=== PATIENT | male | born 1990 | race Caucasian/White ===

== ENCOUNTER 2020-02-16 10:11 | Emergency (ER) | payer BC, SELFPAY ==
[2020-02-16] VITALS (7 sets, daily range): BP systolic 116–134; BP diastolic 70–89; PULSE 77–100; RESP 10–16; TEMP 36.6; O2SAT 92–99
--- NOTE | ~2020-02-16 | XR_ITS ---
EXAMINATION: XR chest 1V portable DATE: 02/16/2020 11:01 INDICATION: Drug overdose. TECHNIQUE: A single frontal view of the chest was obtained on 2 radiographs. COMPARISON: None. FINDINGS: The chest demonstrates clear lungs without pneumonia, pleural effusion, or pneumothorax. Th e heart size is normal. IMPRESSION: 1. No acute cardiopulmonary disease. Reviewed, dictated and finalized at location A.
[2020-02-16] MEDS: NALOXONE HCL 0.4 MG/ML VIAL IV PUSH (10:31)
[2020-02-16] MEDS: SODIUM CHLORIDE 0.9% IV 1,000 ML 999 ML IV CONT (10:37)
[2020-02-16] MEDS: NALOXONE HCL 0.4 MG/ML VIAL (10:48)
[2020-02-16 10:58] LABS: Basophils Percent Auto 0.3 % (0.2-1.2); Eosinophils Absolute Auto 0.1 K/mm3 (0-0.3); Eosinophils Percent Auto 1.5 % (0-4.4); Hematocrit 39.9 % (42.0-52.0); Hemoglobin 13.9 g/dL (14.0-18.0); Immature Granulocyte Absolute 0.03 K/mm3 (0.00-0.031); Immature Granulocyte Percent A 0.3 % (0-0.5); Lymphocytes Absolute Auto 1.08 K/mm3 (0.9-3.2); Lymphocytes Percent Auto 12.6 % (18.3-44.2); Mean Corpuscular HGB Conc 34.8 g/dl (32-36); Mean Corpuscular Hemoglobin 30.2 pg (26-34); Mean Corpuscular Volume 86.6 fl (80-100); Mean Platelet Volume 9.9 fl (7.4-10.4); Monocytes Absolute Auto 0.8 K/mm3 (0.1-0.6); Neutrophils Absolute Auto 6.5 K/mm3 (1.3-6.7); Neutrophils Percent Auto 76.3 % (45.5-73.1); Platelet Count Result 295 k/mm3 (150-375); Red Blood Count 4.61 M/mm3 (4.6-6.20); Red Cell Distribution Width 12.6 % (11.5-14.5); White Blood Count 8.6 K/mm3 (4.5-10.0)
[2020-02-16 11:08] LABS: Alanine Aminotransferase 19 U/L (4-50); Albumin Level 4.3 g/dL (3.5-5.1); Alkaline Phosphatase 79 U/L (38-126); Anion Gap 9 mmol/L (8-16); Aspartate Amino Transferase 47 U/L (17-59); Bilirubin,Total 0.9 mg/dL (0.2-1.3); Blood Urea Nitrogen 9 mg/dL (9-20); Calcium 10.1 mg/dL (8.4-10.2); Carbon Dioxide 28 mmol/L (22-30); Chloride 100 mmol/L (98-107); Creatine Kinase 648 U/L (55-170); Estimated Glomerular Filt Rate > 60; Glucose 110 mg/dL (75-110); Potassium 3.5 mmol/L (3.4-5.0); Sodium 137 mmol/L (137-145)
[2020-02-16 11:09] LABS: Alveolar/Arterial O2 Gradient 34.9 mmHg; Base Excess ABG 1.2 mEq/l (+/-2.0); Carboxyhemoglobin 1.4 % THb (0-2.0); Fractional Inspired Oxygen 21 %; HCO3 ABG 26.2 mEq/l (22.0-26.0); Methemoglobin ABG 0.5 %THb (0-1.5); Modified Allen's Test Pass; Oxygen Content ABG 18.5 %vol (16.0-22.0); Oxygen Saturation ABG 92.5 % (95.0-100.0); Oxyhemoglobin 90.1 % THb (90.0-100.0); PCO2 ABG 42.6 mmHg (35.0-45.0); PO2 ABG 63.8 mmHg (80.0-100.0); PO2 FiO2 Ratio Arterial Blood 3.04 %; Total Hemoglobin 14.6 g/dL (12.0-18.0); pH ABG 7.406 (7.350-7.450)
[2020-02-16 11:10] LABS: Device ROOM AIR; Site Drawn LEFT RADIAL
[2020-02-16] MEDS: NALOXONE HCL INJ 2 MG/2 ML AMP IV PUSH (11:50)
[2020-02-16 12:58] LABS: Add Urine Microscopic? YES; Appearance Urine Clear (Clear); Bacteria Urine Trace /hpf; Bilirubin Urine Negative (Negative); Blood Urine Negative (Negative); Color Urine Yellow (Yellow); Glucose Urine UA Negative (Negative); Ketones Urine Trace mg/dL (Negative); Leukocyte Esterase Ur Negative LEU/UL (Negative); Mucus Urine Heavy /lpf; Nitrate Urine Negative (Negative); Protein Urine 2+ mg/dL (Negative); RBC Urine 0-2 /hpf (0-2); Specific Grav Ur 1.021 (1.001-1.035); WBC Urine 0-3 /hpf
[2020-02-16 13:01] LABS: Barbiturate Screen Urine Negative (Negative); Benzodiazepines Screen Urine Negative (Negative)
[2020-02-16 13:06] LABS: Cannabinoid Screen Urine Positive (Negative); Cocaine Screen Urine Negative (Negative); Methadone Screen Urine Negative (Negative); Opiate Screen Urine Negative (Negative); Phencyclidine Screen Urine Negative (Negative)
--- NOTE | 2020-02-16 13:50 | ED.GENADULT ---
HPI - General Adult General Chief complaint: Overdose Stated complaint: OD Time Seen by Provider: 02/16/20 10:24 Source: patient and EMS Mode of arrival: EMS Limitations: no limitations History of Present Illness HPI narrative: Patient is a 30-year-old male who presents per EMS for concern of overdose patient was given Narcan in the field by EMS and did have improvement in his mentation patient on arrival is alert and oriented x3 does appear to be tired and does not off and on. Patient is denying any pain recent illness or other complaints and admits to snorting fentanyl this morning Related Data Allergies Allergy/AdvReac Type Severity Reaction Status Date / Time No Known Allergies Allergy Verified 01/12/17 07:21 Review of Systems Review of Systems: All systems reviewed & are unremarkable except as noted in HPI and below PMFSH Social History Social History (Updated 02/16/20 @ 13:51 by James Ackerman PA-C) Smoking status: Current every day smoker Substance use type: heroin and amphetamines Living arrangements: alone Exam Narrative: Exam Narrative: GENERAL: Well-appearing, well-nourished, and in no acute distress. HEAD: Normocephalic, atraumatic. EYES: PERRLA and EOMI. ENT: Nares clear, no rhinorrhea or epistaxis. Mucous membranes moist. CHEST: Clear to auscultation. No respiratory distress. No wheezes rales or rhonchi HEART: Regular rate and rhythm. No murmur heard. Normal peripheral pulses. ABDOMEN: Soft, nontender, nondistended EXTREMITIES: Normal range of motion. No edema. SKIN: Warm, dry, no rash. NEURO: No focal deficits. Alert and oriented x3. Cranial nerves II through XII grossly intact. Normal speech and gait PSYCH: Normal mood and affect. Course Course Emergency Course: Patient was given Narcan in the emergency department had minimal change from when he initially presented patient sleeps off and on however is easily arousable patient will be discharged. . Patient otherwise resting in the room in no distress at this time has been observed in the emergency department and felt appropriate for outpatient reevaluation Vital Signs Vital signs: Vital Signs Temperature 98 F 02/16/20 10:15 Pulse Rate 98 02/16/20 10:15 Respiratory Rate 12 02/16/20 10:15 Blood Pressure 116/77 02/16/20 10:15 Pulse Oximetry 92 02/16/20 10:15 Temperature 98 F 02/16/20 10:15 Pulse Rate 98 02/16/20 10:15 Respiratory Rate 12 02/16/20 10:15 Blood Pressure 116/77 02/16/20 10:15 Pulse Oximetry 92 02/16/20 10:15 Medical Decision Making MDM Narrative Medical decision making narrative: Patient with overdose which was unintentional in the room in no distress long-term history of drug abuse will be discharged at this time after being observed patient resting but easily arousable able to ambulate felt appropriate for outpatient reevaluation Vital Signs Vital Signs: Vital Signs Temperature 98 F 02/16/20 10:15 Pulse Rate 98 02/16/20 10:15 Respiratory Rate 12 02/16/20 10:15 Blood Pressure 116/77 02/16/20 10:15 Pulse Oximetry 92 02/16/20 10:15 Temperature 98 F 02/16/20 10:15 Pulse Rate 98 02/16/20 10:15 Respiratory Rate 12 02/16/20 10:15 Blood Pressure 116/77 02/16/20 10:15 Pulse Oximetry 92 02/16/20 10:15 Lab Data Result diagrams: 02/16/20 10:45 02/16/20 10:45 Labs: Lab Results 02/16/20 02/16/20 02/16/20 Range/Units 10:45 10:45 10:45 WBC 8.6 (4.5-10.0) K/mm3 RBC 4.61 (4.6-6.20) M/mm3 Hgb 13.9 L (14.0-18.0) g/dL Hct 39.9 L (42.0-52.0) % MCV 86.6 (80-100) fl MCH 30.2 (26-34) pg MCHC 34.8 (32-36) g/dl RDW 12.6 (11.5-14.5) % Plt Count 295 (150-375) k/mm3 MPV 9.9 (7.4-10.4) fl Immature Gran % (Auto) 0.3 (0-0.5) % Neut % (Auto) 76.3 H (45.5-73.1) % Lymph % (Auto) 12.6 L (18.3-44.2) % [place] % (Auto) 9.0 H (2.6-8.5) % Eos % (Auto) 1.5 (0-4.4) %
== END 2020-02-16 14:45 | disposition home or self-care (01) ==
PROVIDERS: Emergency Medicine Emergency Medical Services; Emergency Provider Emergency Medicine
DX: T40.411A Poisoning by fentanyl or fentanyl analogs, accidental (unintentional), initial encounter (principal); F17.200 Nicotine dependence, unspecified, uncomplicated
CPT/HCPCS: 36415; 36600; 71045; 80053; 80307; 81001; 82375; 82550; 82805; 83050; 85025; 96361; 96374; 96376; 99284; J2310; J7030

== ENCOUNTER 2022-05-16 20:26 | Emergency (ER) | payer BC, SELFPAY ==
--- NOTE | ~2022-05-16 | CT_ITS ---
EXAMINATION: CT cervical spine wo con DATE: 05/16/2022 22:27 INDICATION: Found down. Unresponsive. TECHNIQUE: Computed tomography (CT) of the cervical spine was performed without intravenous contrast. Automated exposure control and iterative reconstruction technique were employed. Exam dose: 457.97 mGy-cm total exam DLP. COMPARISON: None FINDINGS: C1 and C2 are normally aligned and the odontoid process is intact. No fracture or dislocati on or locked facet or prevertebral soft tissue swelling. Cervical interspaces are preserved. No preve rtebral soft tissue swelling.. IMPRESSION: Negative Reviewed, dictated and finalized at Location A. Reviewed, dictated and finalized at location A. ICAL LABORATORY SCIENCE PROFESSOR IMPRESSION: Negative
--- NOTE | ~2022-05-16 | CT_ITS ---
EXAMINATION: CT brain wo con DATE: 05/16/2022 22:27 INDICATION: Found down. Unresponsive. TECHNIQUE: Computed tomography (CT) of the head was performed without intravenous contrast. The mA wa s adjusted according to patient size. Iterative reconstruction technique was employed. Exam dose: 68 1.00 mGy-cm total exam DLP. COMPARISON: None FINDINGS: No intracranial mass lesion or hemorrhage or cerebrovascular accident is detected. No midli ne shift or mass t effect. Normal ventricular size. No subdural or epidural hematoma. There is patchy soft tissue thickening the ethmoid air cells. The paranasal sinuses and mastoid air c ells included in this examination are otherwise unremarkable. No fracture or bone destruction of the cranial vault. IMPRESSION: No significant intracranial abnormality Reviewed, dictated and finalized at Location [facility]. Reviewed, dictated and finalized at location A. EDUCATIONAL AIDE
--- NOTE | ~2022-05-16 | XR_ITS ---
XR chest 1V portable DATE: 05/16/2022 21:07 INDICATION: Unresponsiveness TECHNIQUE: Portable supine AP chest on 06/02/2022 at 2102 hours COMPARISON: None FINDINGS: Mild patchy infiltrates or atelectasis are scattered in the lungs, greater in the lower elvira g zones. Heart size is likely within normal range considering magnification associated with AP projection. No pleural effusion or pulmonary vascular congestion or pneumothorax. IMPRESSION: Bilateral mild patchy infiltrate or atelectasis, greater in the lower lung zones Reviewed, dictated and finalized at location A. LLATE CONFEREE IMPRESSION: Bilateral mild patchy infiltrate or atelectasis, greater in the low er lung zones
[2022-05-16 20:22] VITALS: BP 132/82; PULSE 71; RESP 11; TEMP 36.9; O2SAT 100
--- NOTE | 2022-05-16 20:37 | ECG_ITS ---
Measurements Intervals [place] Rate: 68 P: 14 CA: 134 QRS: 64 QRSD: 95 T: 53 QT: 387 QTc: 414 Interpretive Statements SINUS RHYTHM BASELINE ARTIFACT- V1 NORMAL ECG NO PREVIOUS ECG AVAILABLE FOR COMPARISON Electronically Signed On 05-17-2022 8:10:04 MEDIA TRAFFIC MANAGER by Gigi Yi D.O.
[2022-05-16 21:06] LABS: Basophils Percent Auto 0.4 % (0.2-1.2); Eosinophils Absolute Auto 0.2 K/mm3 (0-0.3); Eosinophils Percent Auto 2.6 % (0-4.4); Immature Granulocyte Absolute 0.03 K/mm3 (0.00-0.031); Immature Granulocyte Percent A 0.4 % (0-0.5); Lymphocytes Absolute Auto 1.61 K/mm3 (0.9-3.2); Lymphocytes Percent Auto 20.8 % (18.3-44.2); Mean Corpuscular HGB Conc 31.6 g/dl (32-36); Mean Corpuscular Hemoglobin 27.5 pg (26-34); Mean Platelet Volume 8.5 fl (7.4-10.4); Monocytes Absolute Auto 0.6 K/mm3 (0.1-0.6); Monocytes Percent Auto 7.5 % (2.6-8.5); Neutrophils Absolute Auto 5.3 K/mm3 (1.3-6.7); Neutrophils Percent Auto 68.3 % (45.5-73.1); Platelet Count Result 374 k/mm3 (150-375); Red Blood Count 4.37 M/mm3 (4.6-6.20); Red Cell Distribution Width 13.4 % (11.5-14.5); White Blood Count 7.7 K/mm3 (4.5-10.0)
[2022-05-16 21:11] LABS: Glucose Point of Care 114 mg/dl (65-105)
[2022-05-16 21:12] LABS: Alveolar/Arterial O2 Gradient 1.1 mmHg; Base Excess ABG 1.4 mEq/l (+/-2.0); Carboxyhemoglobin 1.2 % THb (0-2.0); Device ROOM AIR; Fractional Inspired Oxygen 21 %; HCO3 ABG 27.8 mEq/l (22.0-26.0); Methemoglobin ABG 0.2 %THb (0-1.5); Modified Allen's Test Pass; Oxygen Content ABG 17.1 %vol (16.0-22.0); Oxygen Saturation ABG 96.1 % (95.0-100.0); Oxyhemoglobin 94.5 % THb (90.0-100.0); PCO2 ABG 51.4 mmHg (35.0-45.0); PO2 ABG 87.1 mmHg (80.0-100.0); PO2 FiO2 Ratio Arterial Blood 4.15 %; Reduced Hemoglobin 4.1 %THb (0-5.0); Site Drawn RIGHT RADIAL; Total Hemoglobin 12.8 g/dL (12.0-18.0); pH ABG 7.351 (7.350-7.450)
[2022-05-16 21:20] LABS: INR 1.1; Prothrombin Time 13.9 Seconds (11.1-14.7)
[2022-05-16 21:21] LABS: Lactic Acid Reflex 1.1 mmol/L (0.7-2.0)
[2022-05-16 21:22] LABS: Alanine Aminotransferase 44 U/L (6-50); Alkaline Phosphatase 78 U/L (38-126); Anion Gap 5 mmol/L (8-16); Aspartate Amino Transferase 50 U/L (17-59); Bilirubin,Total 0.4 mg/dL (0.2-1.3); Blood Urea Nitrogen 15 mg/dL (9-20); Calcium 8.7 mg/dL (8.4-10.2); Carbon Dioxide 27 mmol/L (22-30); Chloride 101 mmol/L (98-107); Creatine Kinase 141 U/L (55-170); Estimated CRCL calculation 155 ml/min; Estimated Glomerular Filt Rate > 60; Glucose 116 mg/dL (65-110); Magnesium 2.1 mg/dL (1.6-2.3); Potassium 4.6 mmol/L (3.4-5.0); Sodium 133 mmol/L (137-145)
[2022-05-16 21:23] LABS: Ethanol < 10 mg/dL (<10)
[2022-05-16 21:26] VITALS: BP 125/80; PULSE 72; RESP 12; O2SAT 98
[2022-05-16 21:33] LABS: Appearance Urine Clear (Clear); Bilirubin Urine 1+ (Negative); Blood Urine Trace-intact (Negative); Color Urine Yellow (Yellow); Glucose Urine UA Negative (Negative); Ketones Urine Negative (Negative); Leukocyte Esterase Ur Negative LEU/UL (Negative); Nitrate Urine Negative (Negative); Protein Urine Negative (Negative); Specific Grav Ur >= 1.030 (1.001-1.035)
[2022-05-16 21:39] LABS: Barbiturate Screen Urine Negative (Negative); Benzodiazepines Screen Urine Negative (Negative)
[2022-05-16 21:43] LABS: Cannabinoid Screen Urine Positive (Negative); Cocaine Screen Urine Negative (Negative)
[2022-05-16 21:48] LABS: Calcium Oxalate Crystals Urine Present /hpf; Mucus Urine Rare /lpf; Squamous Epithelial Cell Urine Rare /hpf (Few); WBC Urine 0-3 /hpf
[2022-05-16 21:51] LABS: Add Urine Microscopic? YES
[2022-05-16 21:54] LABS: Methadone Screen Urine Negative (Negative); Opiate Screen Urine Negative (Negative); Phencyclidine Screen Urine Negative (Negative)
[2022-05-16 22:01] LABS: Influenza A QL RT-PCR Negative (Negative); Influenza B QL RT-PCR Negative (Negative); SARS-CoV-2 RNA PCR Negative
[2022-05-16 22:02] VITALS: BP 134/82; PULSE 65; RESP 10; O2SAT 98
[2022-05-16] MEDS: SODIUM CHLORIDE 0.9% IV 1,000 ML 999 ML IV CONT (22:02)
[2022-05-16 22:11] LABS: Amphetamine Screen Urine Positive (Negative)
[2022-05-16] MEDS: NALOXONE HCL 0.4 MG/ML VIAL IV PUSH (22:35)
--- NOTE | 2022-05-16 22:44 | PC.NURSE ---
patient received narcan. he woke up and asked if the police were here. Dr Leung spoke with patient. he requested to leave. gave me a number for family member , spoke with family, states that she will try to contact someone who can come pick him up. ER phone number given to return call
--- NOTE | 2022-05-16 22:52 | ED.AMS ---
HPI - Altered Mental Status General Chief Complaint: Altered Mental Status Stated Complaint: AMS Source: EMS and RN notes reviewed Mode of arrival: EMS Limitations: altered mental status History of Present Illness HPI narrative: This is a 32 year old male who presents for evaluation of altered mental status. He presents with EMS , and they report a bystander found patient in a ditch. He is unable to give any history at this time. Review of Systems Review of Systems: ROS unobtainable: Yes unobtainable due to mental status PMFSH Past Medical History Medical History (Updated 05/17/22 @ 07:40 by Sumi Leung MD) Medical history unknown Surgical History Surgical History (Updated 05/17/22 @ 02:25 by Sumi Leung MD) Surgical history unknown Social History Social History (Updated 05/17/22 @ 02:25 by Sumi Leung MD) Substance use type: marijuana and methamphetamine Exam Const: Nutritional Appearance: well nourished Other: patient is sleeping HENMT: Head: normal to inspection Teeth and gingiva: dentition normal Eyes: Other: pinpoint pupils Chest: Chest palpation & inspection: normal inspection of the chest Resp: Effort & Inspection: normal respiratory effort Auscultation: clear to auscultation bilaterally Cardio: Rate: regular rate Rhythm: regular rhythm Heart sounds: no murmurs GI: GI Palp: Yes Soft to palpation, No Tenderness to palpation present (GI), No Guarding due to palpation present (GI) and No Rigid due to palpation Auscultation: normal bowel sounds Skin: Other: patient multiple ulceration and wounds to arms from previous drug use Neuro: General: moves all extremities and CN's II-XI intact bilaterally Extrem: General: no pedal edema Psych: Attitude: cooperative Course Reevaluation(s) Reevaluation #1: Patient was given narcan and he woke up . He was able to be oriented x 4. He asked for us to call his mother She came to ER and she took patient home. Date: 05/16/22 Time: 23:30 Vital Signs Vital signs: Vital Signs Temperature 98.4 F 05/16/22 20:22 Pulse Rate 71 05/16/22 20:22 Respiratory Rate 11 L 05/16/22 20:22 Blood Pressure 132/82 05/16/22 20:22 Pulse Oximetry 100 01/13/23 20:22 Temperature 98.4 F 05/16/22 20:22 Pulse Rate 100 05/16/22 23:23 Respiratory Rate 17 05/16/22 23:23 Blood Pressure 111/64 05/16/22 23:23 Pulse Oximetry 98 05/16/22 23:23 MDM - Altered Mental Status Lab Data Attestation: I reviewed the patient's lab results. 05/16/22 21:00 05/16/22 21:00 Labs: Lab Results 05/16/22 05/16/22 05/16/22 Range/Units 21:00 21:00 21:00 WBC 7.7 (4.5-10.0) K/mm3 RBC 4.37 L (4.6-6.20) M/mm3 Hgb 12.0 L (14.0-18.0) g/dL Hct 38.0 L (42.0-52.0) % MCV 87.0 (80-100) fl MCH 27.5 (26-34) pg MCHC 31.6 L (32-36) g/dl RDW 13.4 (11.5-14.5) % Plt Count 374 (150-375) k/mm3 MPV 8.5 (7.4-10.4) fl Immature Gran % (Auto) 0.4 (0-0.5) % Neut % (Auto) 68.3 (45.5-73.1) % Lymph % (Auto) 20.8 (18.3-44.2) % [place] % (Auto) 7.5 (2.6-8.5) % Eos % (Auto) 2.6 (0-4.4) % Baso % (Auto) 0.4 (0.2-1.2) % Lymph # (Auto) 1.61 (0.9-3.2) K/mm3 [place] # (Auto) 0.6 (0.1-0.6) K/mm3 Eos # (Auto) 0.2 (0-0.3) K/mm3 Baso # (Auto) 0.0 (0.0-0.1) K/mm3 Abs Immat Gran (auto) 0.03 (0.00-0.031) K/mm3 Absolute Neuts (auto) 5.3 (1.3-6.7) K/mm3 Absolute Nucleated RBC 0.0 (0.0-0.012) K/mm3 Nucleated RBC % 0.0 (0.0-0.2) % PT 13.9 (11.1-14.7) Seconds INR 1.1 APTT 32.0 (22.3-36.8) SECONDS Methemoglobin (0-1.5) %THb Sodium 133 L (137-145) mmol/L Potassium 4.6 (3.4-5.0) mmol/L Chloride 101 (98-107) mmol/L Carbon Dioxide 27 (22-30) mmol/L Anion Gap 5 L (8-16) mmol/L BUN 15 (9-20) mg/dL Creatinine 0.60 L (0.7-1.3) mg/dL Estim Creat Clear Calc 155 ml/min Estimated
--- NOTE | 2022-05-16 22:52 | PC.NURSE ---
spoke with patient's mom, she is coming from [place] to pick patient up
[2022-05-16 23:23] VITALS: BP 111/64; PULSE 100; RESP 17; O2SAT 98
== END 2022-05-16 23:35 | disposition left against medical advice (07) ==
PROVIDERS: Emergency Provider General Practice
DX: F19.10 Other psychoactive substance abuse, uncomplicated (principal); Z20.822 Contact with and (suspected) exposure to COVID-19
CPT/HCPCS: 36415; 36600; 70450; 71045; 72125; 80053; 80307; 81001; 82375; 82550; 82805; 82948; 83050; 83605; 83735; 85025; 85610; 85730; 87636; 93005; 96361; 96374; 99284; J2310; J7030

== ENCOUNTER 2022-11-18 14:21 | Emergency (ER) | payer BC, SELFPAY ==
[2022-11-18 14:24] VITALS: BP 140/86; PULSE 102; RESP 16; TEMP 36.8; O2SAT 97
--- NOTE | 2022-11-18 15:15 | PC.NURSE ---
went to assess pt in room, pt no longer in room. pt told triage desk im brianna check out . pt walked out of department.
== END 2022-11-18 15:15 | disposition left against medical advice (07) ==
DX: K08.89 Other specified disorders of teeth and supporting structures (principal)
CPT/HCPCS: 99199

== ENCOUNTER 2022-11-20 20:07 | Emergency (ER) | payer BC, SELFPAY ==
--- NOTE | 2022-11-20 20:16 | PC.NURSE ---
pt. consents to bp, hr, and spo2 vitals but refuses any other treatment at this time.
--- NOTE | 2022-11-20 20:17 | ED_ITS ---
HPI - General Adult General Chief complaint: Overdose Stated complaint: OVERDOSE Time Seen by Provider: 11/20/22 20:14 History of Present Illness HPI narrative: Patient 30-year-old gentleman presents emerged department with chief complaint of fentanyl overdose. Patient states he took some fentanyl became unresponsive was given Narcan by EMS patient reports he is currently awake alert not having any problems and wants to get out of here. Review of Systems Review of Systems: A 10 system review of systems was completed on the patient and is negative except for what is stated in the HPI. Nursing and ancillary documentation was reviewed. [facility] Past Medical History Medical History Medical history unknown Surgical History Surgical History Surgical history unknown Social History Social History Substance use type: marijuana and methamphetamine Exam Narrative: GENERAL: Well-appearing, well-nourished, and in no acute distress. HEAD: Normocephalic, atraumatic. EYES: PERRLA and EOMI. ENT: Nares clear, no rhinorrhea or epistaxis. Mucous membranes moist. NECK: Supple. CHEST: Clear to auscultation. No respiratory distress. HEART: Regular rate and rhythm. No murmur heard. Normal peripheral pulses. ABDOMEN: Soft, nontender, nondistended, normal active bowel sounds. EXTREMITIES: Normal range of motion. No edema. SKIN: Warm, dry, no rash. NEURO: No focal deficits. Alert and oriented x3. PSYCH: Normal mood and affect. Medical Decision Making [facility] Narrative Medical decision making narrative: Differential diagnosis opiate overdose. Polysubstance overdose Patient is denying any suicidal or homicidal ideation. Patient reports that he is ready to leave patient was explained that the patient should be observed for an hour in the emergency department to make sure that there is any residual effects of the fentanyl the patient states that he is ready to leave and feels fine and understands that there is a risk of Discharge Plan Discharge Clinical Impression: Accidental fentanyl overdose Patient Disposition: Left Against Medical Advice Condition: Stable Instructions: Narcotic Safety (ED), Narcotic Use Disorder (ED) Prescriptions: New naloxone [Narcan] 4 mg/actuation spray,non-aerosol 4 mg intranasal Q2M PRN (Reason: opioid overdose) Qty: 2 0RF Rx Instructions: spray 1 dose into ONE nostril; alternate nostrils w each dose until help arrives Follow-up/Referrals: UNKNOWN,DOCTOR [Primary Care Provider] -
[2022-11-20 20:29] VITALS: RESP 14; O2SAT 95
== END 2022-11-20 20:28 | disposition left against medical advice (07) ==
LOC: ANHED 20:21
PROVIDERS: Emergency Provider Emergency Medicine
DX: T40.411A Poisoning by fentanyl or fentanyl analogs, accidental (unintentional), initial encounter (principal)
CPT/HCPCS: 99283